=== PATIENT | male | born 1995 | race Hispanic/Latino ===

== ENCOUNTER 2019-04-09 09:05 | Emergency (ER) | payer BC, OTHER ==
[~2019-04-09] VITALS: Ht 170.2 cm; Wt 94.3 kg
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
[2019-04-09] MEDS ORDERED: DIAZEPAM 2 MG TAB PO ONE (10:00)
[2019-04-09] MEDS ORDERED: KETOROLAC TROMETHAMINE 60 MG/2 ML VIAL IM ONE (10:00)
[2019-04-09] MEDS ORDERED: ULTRAM50 MG PO (10:20)
[2019-04-09] MEDS ORDERED: ROBAXIN-750750 MG PO (10:20)
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
--- NOTE | 2019-04-09 11:37 | Diagnostic Imaging Report ---
Lumbar Spine Radiographs: 4 views HISTORY: Pain COMPARISON: None available. DISCUSSION: Some of the osseous structures are partially obscured by stool and bowel gas. There are five non-rib bearing lumbar vertebral bodies. The alignment of the spine is within normal limits. No displaced fracture or compression deformity is identified. Disc Spaces: The disc spaces are well maintained. Facets: The facet joints are unremarkable. IMPRESSION: No acute radiographic abnormality. Signed by: Dr. Manoj Dawson MD on 04/09/2019 11:34 AM
== END 2019-04-09 12:20 | disposition home or self-care (01) ==
LOC: ER 09:11
DX: S16.1XXA Strain of muscle, fascia and tendon at neck level, initial encounter (principal); S39.012A Strain of muscle, fascia and tendon of lower back, initial encounter; V43.52XA Car driver injured in collision with other type car in traffic accident, initial encounter; Y92.488 Other paved roadways as the place of occurrence of the external cause
CPT/HCPCS: 72110; 72125; 99283; J1885